=== PATIENT | male | born 1975 | race Caucasian/White ===

== ENCOUNTER → 2019-11-13 | Outpatient (CLI) | payer BC | END | disposition home or self-care (01) | LOC: LABWHC1 12:04 | PROVIDERS: ATTEND Family Medicine | DX: R05 Cough (principal); R06.02 Shortness of breath; J45.909 Unspecified asthma, uncomplicated | CPT/HCPCS: 87635 ==

== ENCOUNTER 2020-02-12 10:23 | Emergency (ER) | payer BC ==
[2020-02-12 10:35] VITALS: BP 151/83; PULSE 87; RESP 18; TEMP 98.8
[2020-02-12] MEDS ORDERED: LIDOCAINE 1%-EPI 1:100,000 20 ML VIAL SQ STA (10:48)
[2020-02-12] MEDS ORDERED: SULFAMETHOX-TMP 800-160MG 1 EACH TAB PO STA (10:49)
--- NOTE | 2020-02-12 11:10 | ED ---
Skin/Abscess/FB HPI - General Source: patient Mode of arrival: ambulatory Limitations: no limitations <Constantin Beyer - Last Filed: 02/12/20 11:34> <Margarette El - Last Filed: 02/15/20 02:22> - General Chief complaint: Skin/Abscess/Foreign Body Stated complaint: infection Time Seen by Provider: 02/12/20 10:36 - History of Present Illness Initial comments: Patient is a 44-year-old male presenting to emergency department with a chief complaint of skin infection. Patient states he's developed and "bump" on his buttock yesterday and has since increased in size. Patient states now it is very painful and difficult to sit due to the pain. Patient reports there is been no active drainage that he is aware of. Patient also reports that he garo an outline of the infection yesterday and the erythema has since spread past that. Denies any night sweats fevers or chills. States he placed lidocaine the region to help with some of discomfort but there was no significant improvement in symptoms. Tetanus up-to-date. No history of MRSA infections. (Constantin Beyer) - Related Data Home Medications Medication Instructions Recorded Confirmed Albuterol Inhaler (Mhu) [Ventolin 1 - 2 puff INHALATION RT-DAILY PRN 06/06/15 04/22/16 Inhaler] Fluticasone/Salmeterol [Advair 1 puff INHALATION RT-BID 06/06/15 04/22/16 500-50 Diskus] HYDROcodone/APAP 7.5-325MG [[place] 1 tab PO QID PRN 06/06/15 04/22/16 7.5-325] Sertraline [Zoloft] 150 mg PO HS 09/24/15 04/17/16 Buprenorphine [Butrans 20 MCG/HOUR] 1 patch TRANSDERM KIM 04/17/16 04/22/16 Ibuprofen [Motrin] 800 mg PO DAILY PRN 04/17/16 04/17/16 traZODone HCL 50 mg PO HS 04/17/16 04/17/16 Previous Rx's Medication Instructions Recorded HYDROcodone/APAP 10-325MG [[place] 1 - 2 tab PO Q4-6H PRN #60 tab 04/26/16 10-325] Sennosides-Docusate Sodium 2 tab PO DAILY #30 tablet 04/26/16 [Senokot-S] clonazePAM [KlonoPIN] 0.5 mg PO BID PRN #40 tablet 04/26/16 diazePAM [Valium] 5 mg PO QID PRN #40 tab 04/26/16 Sulfamethox-Tmp 800-160Mg [Bactrim 1 each PO Q12HR #20 tab 02/12/20 Ds] Allergies Allergy/AdvReac Type Severity Reaction Status Date / Time shellfish derived [Shellfish] Allergy Swelling Verified 02/12/20 10:34 venom-honey bee Allergy Anaphylaxis Verified 02/12/20 10:34 [bee venom (honey bee)] Iodine and Iodide Containing AdvReac Swelling Verified 02/12/20 10:34 Produc Review of Systems ROS Other: All systems not noted in ROS Statement are negative. <Constantin Beyer - Last Filed: 02/12/20 11:34> ROS Other: All systems not noted in ROS Statement are negative. <Margarette El - Last Filed: 02/15/20 02:22> ROS Statement: Those systems with pertinent positive or pertinent negative responses have been documented in the HPI. Past Medical History Past Medical History: Asthma, Pneumonia Additional Past Medical History / Comment(s): lower back pain History of Any Multi-Drug Resistant Organisms: None Reported Past Surgical History: Tonsillectomy Additional Past Surgical History / Comment(s): back decompression and fusion. Past Anesthesia/Blood Transfusion Reactions: No Reported Reaction Past Psychological History: Bipolar Smoking Status: Never smoker Past Alcohol Use History: Occasional Past Drug Use History: Marijuana - Past Family History Mother Family Medical History: No Reported History <Constantin Beyer - Last Filed: 02/12/20 11:34> General Exam Limitations: no limitations General appearance: alert, in no apparent distress, obese Head exam: Present: atraumatic, normocephalic, normal inspection Eye exam: Present: normal appearance, PERRL, EOMI Pupils: Present: normal accommodation ENT exam: Present: normal exam, normal oropharynx, mucous membranes moist Neck exam: Present: normal inspection, full ROM. Absent: tenderness Respiratory exam: Present: normal lung sounds bilaterally. Absent: respiratory distress Cardiovascular Exam: Present: regular rate, normal rhythm, normal heart sounds GI/Abdominal exam: Present: soft. Absent: distended, tenderness, guarding exam: Present: other (Abscess measuring approximately 5 cm diameter on the left buttock. Small region of fluctuance with surrounding induration. Surrounding overlying cellulitic changes.) Extremities exam: Present: normal inspection, full ROM. Absent: tenderness Back exam: Present: normal inspection, full ROM. Absent: tenderness Neurological exam: Present: alert, oriented X3 Psychiatric exam: Present: normal affect, normal mood Skin exam: Present: warm, dry, intact, normal color <Constantin Beyer - Last Filed: 02/12/20 11:34> Course Vital Signs 02/12/20 10:31 Temperature 98.8 F Pulse Rate 87 Respiratory 18 Rate Blood Pressure 151/83 O2 Sat by Pulse 97 Oximetry Procedures - Incision & Drainage Consent Obtained: verbal consent Indication: Abscess Site: buttock Size (cm): 5 Anesthetic Used: lidocaine 1%, with epi Amount (mLs): 2 I&D Cleaning Method: Alcohol Wipe Sterile Field Used?: No Scalpel Used: #11 Needle Aspiration Performed?: No Irrigation Performed?: No I&D Drainage Obtained: Pus, Blood Culture Obtained?: No Complications: pain, bleeding Patient Tolerated Procedure: well, no complications <Constantin Beyer - Last Filed: 02/12/20 11:34> Medical Decision Making <Constantin Beyer - Last Filed: 02/12/20 11:34> <Margraette El - Last Filed: 02/15/20 02:22> - Medical Decision Making Patient is a 44-year-old male presenting to the emergency department with a chief complaint of a skin infection. Patient has an abscess on the buttock measuring approximately 5 cm in diameter with a small region of fluctuance with surrounding cellulitic changes. Incision and drainage was performed. I was able to drain small amounts of pus and blood. Patient started on antibiotics and will be discharged with 10 day course of Bactrim. His tetanus is up-to-date. He is not diabetic, immunosuppressed, no history of MRSA. He was advised to take warm baths and change the gauze daily. Return parameters were thoroughly discussed the patient was standing agreeable. Case discussed with physician. (Constantin Beyer) I was available for consultation in the emergency department. The history and physical exam were done by the midlevel provider. I was not consulted for this patients care. Chart was dictated using [employer] dictation software. Attempts were made to correct any dictation errors however some typographical errors may persist. Patient was seen during a national state of emergency due to the Covid-19 pandemic. (Margarette El) Disposition Is patient prescribed a controlled substance at d/c from ED?: No Time of Disposition: 11:39 <Constantin Beyer - Last Filed: 02/12/20 11:34> <Margarette El - Last Filed: 02/15/20 02:22> Clinical Impression: Abscess of buttock Disposition: HOME SELF-CARE Condition: Stable Instructions (If sedation given, give patient instructions): Abscess (ED), Abscess Incision and Drainage (DC) Additional Instructions: Take medication as directed. Take warm baths. Return to emergency department if symptoms worsen. Prescriptions: Sulfamethox-Tmp 800-160Mg [Bactrim Ds] 1 each PO Q12HR #20 tab Referrals: Jordan Olivares DO [Primary Care Provider] - 1-2 days
== END 2020-02-12 11:55 | disposition home or self-care (01) ==
LOC: EC 10:23
DX: L02.31 Cutaneous abscess of buttock (principal); J45.909 Unspecified asthma, uncomplicated; F31.9 Bipolar disorder, unspecified; Z79.51 Long term (current) use of inhaled steroids; Z79.899 Other long term (current) drug therapy; Z91.013 Allergy to seafood; Z91.041 Radiographic dye allergy status; Z91.030 Bee allergy status
CPT/HCPCS: 10060; 99283

== ENCOUNTER → 2020-02-26 | Outpatient (CLI) | payer BC | END | disposition home or self-care (01) | LOC: LABWHC1 13:55 | PROVIDERS: ATTEND Internal Medicine | DX: Z53.9 Procedure and treatment not carried out, unspecified reason (principal) ==

== ENCOUNTER 2021-05-23 06:24 | Day surgery (SDC) | payer BC ==
[2021-05-21 14:28] VITALS: BMI 33.7
--- NOTE | 2021-05-23 05:41 | P.GSHP ---
History of Present Illness H&P Date: 05/23/21 CHIEF COMPLAINT: Tumor left forearm, 6 cm HISTORY OF PRESENT ILLNESS: The patient is a 46 year-old male with left forearm mass with tenderness over 5+ years. He now who presents for excision. PAST MEDICAL HISTORY: Please see list. PAST SURGICAL HISTORY: Please see list. MEDICATIONS: Please see list. ALLERGIES: Please see list. SOCIAL HISTORY: No illicit drug use FAMILY HISTORY: No reports of Crohn disease or ulcerative colitis. REVIEW OF ORGAN SYSTEMS: CONSTITUTIONAL: No reports of fevers or chills. GI: Denies any blood in stools or constipation. PHYSICAL EXAM: VITAL SIGNS: Stable Musculoskeletal: No clubbing cyanosis GENERAL: Well developed and in no acute distress. Pleasant. HEENT: No sclera icterus. Extraocular movements grossly intact. Moist buccal mucosa. Head is atraumatic, normocephalic. Hears conversational speech. No nasal drainage. NECK: Supple without lymphadenopathy. No JV distention. CHEST: Non-labored respirations and equal bilateral excursions. CARDIOVASCULAR: Regular rate and rhythm. Palpable 2+ radial pulses. ABDOMEN: Soft. Non-tender. Nondistended. NEUROLOGIC: No focal or lateralizing signs. PSYCH: Appropriate affect. Alert and oriented to person, place and time. SKIN: Left forearm tumor, 6 cm ASSESSMENT: 1. Left forearm tumor, 6 cm PLAN: 1. Will proceed of excision of left forearm tumor. Benefits and risks described. Past Medical History Past Medical History: Asthma, Osteoarthritis (OA), Pneumonia Additional Past Medical History / Comment(s): Lower back pain. History of Any Multi-Drug Resistant Organisms: None Reported Past Surgical History: Back Surgery, Tonsillectomy Additional Past Surgical History / Comment(s): Back decompression and fusion. Past Anesthesia/Blood Transfusion Reactions: No Reported Reaction Past Psychological History: ADD/ADHD, Anxiety, Depression Smoking Status: Never smoker Past Alcohol Use History: Occasional Past Drug Use History: Marijuana Additional Drug Use History / Comment(s): Marijuana use 2 times a month. Aware no use 24 hrs prior to procedure. - Past Family History Mother Family Medical History: No Reported History Medications and Allergies Home Medications Medication Instructions Recorded Confirmed Type Albuterol Inhaler (Mhu) [Ventolin 1 - 2 puff INHALATION DAILY PRN 06/06/15 05/21/21 History Inhaler] Fluticasone/Salmeterol [Advair 1 puff INHALATION BID 06/06/15 05/21/21 History 500-50 Diskus] Sertraline [Zoloft] 150 mg PO HS 09/24/15 05/21/21 History traZODone HCL 50 mg PO HS 04/17/16 05/21/21 History Atomoxetine HCl [Strattera] 80 mg PO QAM 05/21/21 05/21/21 History Montelukast Sodium [Singulair] 10 mg PO HS 05/21/21 05/21/21 History Tiotropium 18 Mcg/Puff [Spiriva] 1 puff INHALATION DAILY 05/21/21 05/21/21 History Allergies Allergy/AdvReac Type Severity Reaction Status Date / Time shellfish derived [Shellfish] Allergy Swelling Verified 05/21/21 14:16 venom-honey bee Allergy Anaphylaxis Verified 05/21/21 14:16 [bee venom (honey bee)] Iodine and Iodide Containing AdvReac Swelling Verified 05/21/21 14:16 Produc
[~2021-05-23 06:24] MED LIST: HEPARIN SODIUM,PORCINE/PF 5,000 UNIT/0.5 ML SYRINGE SQ PRN; Pre Op ABX Message 1 EACH MISC MISCELLANE ONE
[2021-05-23] MEDS ORDERED: MIDAZOLAM 2 MG/2 ML VIAL IV PRN (06:31)
[2021-05-23] MEDS ORDERED: ONDANSETRON 4 MG/2 ML VIAL IVP ONE (06:31)
[2021-05-23] MEDS ORDERED: LACTATED RINGERS 1,000 ML IV SCH (06:31)
[2021-05-23] MEDS ORDERED: DEXAMETHASONE SOD PHOSPHATE 4 MG/ML 1 ML VIAL IV ONE (06:31)
[2021-05-23] MEDS ORDERED: SCOPOLAMINE 1.5MG/72HR PATCH TRANSDERM ONE (06:31)
[2021-05-23] MEDS ORDERED: HYDROmorphone 0.5 MG/0.5 ML SYRINGE IVP PRN (07:00)
[2021-05-23] MEDS ORDERED: LACTATED RINGERS 1,000 ML IV ONE ×2 (07:10)
[2021-05-23] MEDS ORDERED: KETAMINE 10 MG/ML 20 ML VIAL ONE (07:47)
[2021-05-23] MEDS ORDERED: MIDAZOLAM 2 MG/2 ML VIAL ONE (07:47)
[2021-05-23] MEDS ORDERED: PROPOFOL 10 MG/ML 20 ML VIAL IV ONE (07:47)
[2021-05-23] MEDS ORDERED: fentaNYL (PF) 50 MCG/ML 2 ML AMP ONE (07:47)
[2021-05-23] MEDS ORDERED: BUPIVACAIN-EPI 0.25%-1:200,000 30 ML VIAL SQ ONE (08:11)
[2021-05-23 08:59] VITALS: TEMP 96.9
--- NOTE | 2021-05-23 09:18 | P.OP ---
Date of Procedure: 05/23/21 Description of Procedure: SURGEON: YAMILETH AGUILAR MD DIAPHRAGM BUILDER: NONE. PREOPERATIVE DIAGNOSES: 1. Left medial elbow tumor, subcutaneous 2. ADHD with ADD 3. Generalized anxiety disorder 4. Depressive disorder 5. Asthma POSTOPERATIVE DIAGNOSES: 1. Left medial elbow tumor, subcutaneous 2. ADHD with ADD 3. Generalized anxiety disorder 4. Depressive disorder 5. Asthma OPERATION: 1. Excision of left medial elbow subcutaneous tumor, 3 cm. 2. Intermediate closure of left medial elbow, 4 cm. ANESTHESIA: MAC converted to LMA with local ESTIMATED BLOOD LOSS: 5 mL. SPECIMENS REMOVED: 1. Left medial elbow tumor COMPLICATIONS: None. FINDINGS: 1. Left elbow medial mass excision, 2 cm tumor INDICATIONS: The patient is a 46-year-old male who presents with left medial elbow subcutaneous tumor. Surgical options, including excision was discussed. Benefits and risks were described. Informed consent was obtained. DESCRIPTION OF PROCEDURE: Patient was brought into the operating room, laid in left lateral decubitus position. After adequate IV sedation, the left forearm was prepped and draped in standard sterile fashion using ChloraPrep. A timeout protocol was confirmed with the surgical team regarding patient's name including procedures to be performed. Preoperative medications was administered. Next, a local field block was administered. The patient could not tolerate sedation and was converted to LMA. The left medial elbow mass was measured using a ruler with borders marked with indelible marker. A transverse of 4 cm incision was made into the dermis followed by circumferential dissection using electro-Bovie cautery into the subcutaneous tissue of the left lateral forearm. Hemostasis was checked with electrocautery. The wound was closed in multiple layers including 3-0 Vicryl for the deep subcutaneous tissue. The skin was closed using 4-0 Monocryl. The skin was cleansed. Exofin tape was placed. Optifoam dressing was placed. At the end of the procedure, needle, sponge, and instrument count had been verified correct by the certified surgical assistant. The patient was taken to the postanesthesia care unit in stable condition. Plan - Discharge Summary Discharge Rx Participant: No New Discharge Prescriptions: New Ibuprofen [Motrin] 600 mg PO Q8HR PRN #30 tab PRN Reason: Pain Continue Albuterol Inhaler (Mhu) [Ventolin Hfa Inhaler (Mhu)] 1 - 2 puff INHALATION DAILY PRN PRN Reason: Shortness Of Breath Fluticasone/Salmeterol [Advair 500-50 Diskus] 1 puff INHALATION BID Sertraline [Zoloft] 150 mg PO HS traZODone HCL 50 mg PO HS Atomoxetine HCl [Strattera] 80 mg PO QAM Tiotropium 18 Mcg/Puff [Spiriva] 1 puff INHALATION DAILY Montelukast Sodium [Singulair] 10 mg PO HS Discharge Medication List Albuterol Inhaler (Mhu) [Ventolin Hfa Inhaler (Mhu)] 1 - 2 puff INHALATION DAILY PRN 06/06/15 [History] Fluticasone/Salmeterol [Advair 500-50 Diskus] 1 puff INHALATION BID 06/06/15 [History] Sertraline [Zoloft] 150 mg PO HS 09/24/15 [History] traZODone HCL 50 mg PO HS 04/17/16 [History] Atomoxetine HCl [Strattera] 80 mg PO QAM 05/21/21 [History] Montelukast Sodium [Singulair] 10 mg PO HS 05/21/21 [History] Tiotropium 18 Mcg/Puff [Spiriva] 1 puff INHALATION DAILY 05/21/21 [History] Ibuprofen [Motrin] 600 mg PO Q8HR PRN #30 tab 05/23/21 [Rx] Follow up Appointment(s)/Referral(s): Yamileth Aguilar MD [STAFF PHYSICIAN] - 05/27/21 Patient Instructions/Handouts: Excision of Skin Lesion (DC) Activity/Diet/Wound Care/Special Instructions: DO NOT REMOVE DRESSING. SEE INSTRUCTIONS ON DRESSING May shower. No bath tub soaks for two weeks until Jun 06 for your arm. Diet as tolerated. Use Tylenol and ibuprofen or Aleve scheduled for the next 24-48 hours for best pain relief. Use ice along incisions for today to prevent swelling. Discharge Disposition: HOME SELF-CARE
[2021-05-23 09:49] VITALS: BP 134/81; PULSE 66; RESP 20
== END 2021-05-23 10:11 | disposition home or self-care (01) ==
LOC: OR 06:24
PROVIDERS: ATTEND Surgery Plastic and Reconstructive Surgery
DX: D49.2 Neoplasm of unspecified behavior of bone, soft tissue, and skin (principal); F41.1 Generalized anxiety disorder; J45.909 Unspecified asthma, uncomplicated; F32.A Depression, unspecified; F90.9 Attention-deficit hyperactivity disorder, unspecified type
CPT/HCPCS: 88304; 11403; J2250; J1100; J2405; J3010; J2704; J1644

== ENCOUNTER → 2021-12-26 | Outpatient (CLI) | payer BC ==
[2021-12-26 22:31] LABS: Basophils # (A) 0.05 X 10*3/uL (0.00-0.10); Basophils % (A) 0.7 %; Eosinophils # (A) 0.49 X 10*3/uL (0.04-0.35); Eosinophils % (A) 6.7 %; HCT 43.4 % (39.6-50.0); HGB 14.3 g/dL (13.0-17.0); Immature Grans, Automated 0.6 %; Lymphocytes # (A) 1.39 X 10*3/uL (0.90-5.00); Lymphocytes % (A) 19.1 %; MCH 28.4 pg (27.0-32.0); MCHC 32.9 g/dL (32.0-37.0); MCV 86.1 fL (80.0-97.0); Mean Platelet Volume 8.9 fL (9.5-12.2); Monocytes # (A) 0.51 X 10*3/uL (0.20-1.00); NRBC Per 100 WBC 0 /100 WBCS (0.0-0.0); Neutrophils # (A) 4.79 X 10*3/uL (1.80-7.70); Neutrophils % (A) 65.9 %; Platelet Count 212 X 10*3/uL (140-440); RBC 5.04 X 10*6/uL (4.40-5.60); RDW 11.9 % (11.5-14.5); WBC 7.27 X 10*3/uL (4.50-10.00)
== END | disposition home or self-care (01) ==
LOC: LABWHC1 15:50
PROVIDERS: ATTEND Internal Medicine
DX: J45.998 Other asthma (principal)
CPT/HCPCS: 36415; 82785; 85025

== ENCOUNTER → 2022-11-12 | Outpatient (CLI) | payer BC ==
[2022-11-12 18:04] LABS: Alternaria alternata IgE 1.08 kU/L; Aspergillus fumagatus IgE 0.31 kU/L; Birch IgE 0.17 kU/L; Cladosporian herbarum IgE 0.42 kU/L; Cockroach IgE 1.62 kU/L; Elm IgE <0.10 kU/L; Maple (Box Elder) IgE 0.25 kU/L; Oak IgE <0.10 kU/L; Ragweed,Common IgE 0.18 kU/L; Red Top (Bentgrass) IgE 1.34 kU/L
[2022-11-12 18:06] LABS: Cat Epith & Dander IgE 1.58 kU/L; Dermato. farinae IgE 4.38 kU/L; Dog Dander IgE <0.10 kU/L
== END | disposition home or self-care (01) ==
LOC: LABWHC1 10:02
PROVIDERS: ATTEND Internal Medicine
DX: M13.80 Other specified arthritis, unspecified site (principal)
CPT/HCPCS: 36415; 82785; 86003

== ENCOUNTER 2023-09-27 11:43 | Emergency (ER) | payer BC ==
--- NOTE | 2023-09-27 11:58 | ED ---
Syncope HPI - General Stated Complaint: head injury/fall Time Seen by Provider: 09/27/23 11:57 Source: patient, RN notes reviewed Mode of arrival: ambulatory Limitations: no limitations - History of Present Illness Initial Comments: Patient is a 48-year-old male presenting to the ER with a chief complaint of syncope. Patient states on Wednesday night he got up to use the restroom and believes he passed out. He reports he woke up on the ground on his left side. He states he fell onto a glass closet door and the glass was shattered when he woke up. He is unsure if there is any dizziness, chest pain, shortness of breath or lightheadedness prior to event. He is not on any blood thinners. He also is reporting a "rattling in his chest". He states this is a chronic issue and has close follow-up with PCP. Denies any fevers, chills, shortness of breath, chest pain, abdominal pain, constipation/diarrhea or urinary complaints. - Related Data Home Medications Medication Instructions Recorded Confirmed Albuterol Inhaler [Ventolin Hfa 1 - 2 puff INHALATION DAILY PRN 06/06/15 05/21/21 Inhaler] Fluticasone Propion/Salmeterol 1 puff INHALATION BID 06/06/15 05/21/21 [Advair 500-50 Diskus] Sertraline [Zoloft] 150 mg PO HS 09/24/15 05/21/21 traZODone HCL 50 mg PO HS 04/17/16 05/21/21 Atomoxetine HCl [Strattera] 80 mg PO QAM 05/21/21 05/21/21 Montelukast Sodium [Singulair] 10 mg PO HS 05/21/21 05/21/21 Tiotropium 18 Mcg/Puff [Spiriva] 1 puff INHALATION DAILY 05/21/21 05/21/21 Previous Rx's Medication Instructions Recorded Ibuprofen [Motrin] 600 mg PO Q8HR PRN #30 tab 05/23/21 Allergies Allergy/AdvReac Type Severity Reaction Status Date / Time shellfish derived [Shellfish] Allergy Swelling Verified 09/27/23 11:56 venom-honey bee Allergy Anaphylaxis Verified 09/27/23 11:56 [bee venom (honey bee)] Iodine and Iodide Containing AdvReac Swelling Verified 09/27/23 11:56 Produc Review of Systems ROS Statement: Those systems with pertinent positive or pertinent negative responses have been documented in the HPI. ROS Other: All systems not noted in ROS Statement are negative. Past Medical History Past Medical History: Asthma, Osteoarthritis (OA), Pneumonia Additional Past Medical History / Comment(s): Lower back pain. History of Any Multi-Drug Resistant Organisms: None Reported Past Surgical History: Back Surgery, Tonsillectomy Additional Past Surgical History / Comment(s): Back decompression and fusion. Past Anesthesia/Blood Transfusion Reactions: No Reported Reaction Past Psychological History: ADD/ADHD, Anxiety, Depression Smoking Status: Never smoker Past Alcohol Use History: Occasional Past Drug Use History: Marijuana - Past Family History Mother Family Medical History: No Reported History General Exam - General Exam Comments Initial Comments: Visual Physical Exam Vital signs reviewed General: Well-appearing, nontoxic, no acute distress. Head: Normocephalic, atraumatic Eyes: PERRLA, EOMI, contusion under left eye ENT: Airway patent Chest: Nonlabored breathing Skin: No visual rash, normal skin tone Neuro: Alert and oriented 3 Musculoskeletal: No gross abnormalities Limitations: no limitations General appearance: alert, in no apparent distress Head exam: Present: atraumatic, normocephalic, normal inspection Eye exam: Present: normal appearance, PERRL, EOMI, other (Contusion under left eye. Abrasion to nasal bridge). Absent: scleral icterus, conjunctival injection, periorbital swelling ENT exam: Present: normal exam, normal oropharynx, mucous membranes moist, TM's normal bilaterally Neck exam: Present: normal inspection. Absent: tenderness, meningismus, lymphadenopathy Respiratory exam: Present: normal lung sounds bilaterally. Absent: respiratory distress, wheezes, rales, rhonchi, stridor Cardiovascular Exam: Present: regular rate, normal rhythm, normal heart sounds. Absent: systolic murmur, diastolic murmur, rubs, gallop, clicks GI/Abdominal exam: Present: soft, normal bowel sounds. Absent: distended, tenderness, guarding, rebound, rigid Extremities exam: Present: normal inspection, full ROM, normal capillary refill. Absent: tenderness, pedal edema, joint swelling, calf tenderness Neurological exam: Present: alert, oriented X3, CN II-XII intact Psychiatric exam: Present: normal affect, normal mood Skin exam: Present: warm, dry, intact, normal color. Absent: rash Course Vital Signs 09/27/23 11:53 Temperature 98 F Pulse Rate 92 Respiratory 18 Rate Blood Pressure 152/88 O2 Sat by Pulse 98 Oximetry Medical Decision Making - Medical Decision Making I performed the quick note portion of this chart. Electronically signed by Margarito Mejia PA-C Was pt. sent in by a medical professional or institution (, [facility], EVALUATION ANALYST, urgent care, hospital, or skilled nursing...) When possible be specific @ -No Did you speak to anyone other than the patient for history (EMS, parent, family, police, friend...)? What history was obtained from this source @ -No Did you review nursing and triage notes (agree or disagree)? Why? @ -I reviewed and agree with nursing and triage notes Were old charts reviewed (outside hosp., previous admission, EMS record, old EKG, old radiological studies, urgent care reports/EKG's, skilled nursing records)? Report findings @ -No old charts were reviewed Differential Diagnosis (chest pain, altered mental status, abdominal pain women, abdominal pain men, vaginal bleeding, weakness, fever, dyspnea, syncope, headache, dizziness, GI bleed, back pain, seizure, CVA, palpatations, mental health, musculoskeletal)? @ -Differential Syncope:Valvular disease, hypertrophic cardiomyopathy, pulmonary embolism, tamponade, tachycardia, bradycardia, CT, hypovolemia, hemorrhage, dissection, anemia, intracranial hemorrhage, seizure, hypoglycemia, carbon monoxide poisoning, this is not meant to be an all-inclusive list. EKG interpreted by me (3pts min.). @ -As above X-rays interpreted by me (1pt min.). @ -Chest x-ray interpreted by me negative for acute cardiopulmonary process. CT interpreted by me (1pt min.). @ -CT brain negative for acute process. U/S interpreted by me (1pt. min.). @ -None done What testing was considered but not performed or refused? (CT, X-rays, U/S, labs)? Why? @ -None What meds were considered but not given or refused? Why? @ -None Did you discuss the management of the patient with other professionals (professionals i.e. YOEL Gates, EVALUATION ANALYST, lab, RT, psych nurse, social security assessor, size mixer, teacher, zoology technical officer, lead case manager)? Give summary @ -No Was smoking cessation discussed for >3mins.? @ -No Was critical care preformed (if so, how long)? @ -No Were there social determinants of health that impacted care today? How? (Homelessness, low income, unemployed, alcoholism, drug addiction, transportation, low edu. Level, literacy, decrease access to med. care, group home, rehab)? @ -No Was there de-escalation of care discussed even if they declined (Discuss DNR or withdrawal of care, Hospice)? DNR status @ -No What co-morbidities impacted this encounter? (DM, HTN, Smoking, COPD, CAD, Cancer, CVA, ARF, Chemo, Hep., AIDS, mental health diagnosis, sleep apnea, morbid obesity)? @ -None Was patient admitted / discharged? Hospital course, mention meds given and route, prescriptions, significant lab abnormalities, going to OR and other pertinent info. @ -Discharge. Patient is a 48-year-old male presenting to the ER with chief complaint of fall and possible syncope. Patient originally examined by myself is a quick note. History and physical exam completed. Vitals stable. Patient in no signs of acute distress and nontoxic-appearing. No acute neurological findings on exam. Contusion under left eye. Imaging completed in the ER negative for acute process. Labs obtained unremarkable. Urine without signs of infection. EKG showing normal sinus rhythm with no acute ST segment or T wave abnormalities. COVID, influenza, RSV negative. Results discussed with patient, all questions answered. Advise close follow-up with PCP. Return parameters discussed. Patient discharged in stable condition with follow-up to PCP. Patient verbally expressed understanding and agreement with care plan. Case discussed with ED attending, Dr. Santos. Undiagnosed new problem with uncertain prognosis? @ -No Drug Therapy requiring intensive monitoring for toxicity (Heparin, Nitro, Insulin, Cardizem)? @ -No Were any procedures done? @ -No Diagnosis/symptom? @ -Contusion/syncope Acute, or Chronic, or Acute on Chronic? @ -Acute Uncomplicated (without systemic symptoms) or Complicated (systemic symptoms)? @ -Uncomplicated Side effects of treatment? @ -No Exacerbation, Progression, or Severe Exacerbation? @ -No Poses a threat to life or bodily function? How? (Chest pain, USA, [place], pneumonia, PE, COPD, DKA, ARF, appy, cholecystitis, CVA, Diverticulitis, Homicidal, Suicidal, threat to staff... and all critical care pts) @ -No - Lab Data Result diagrams: 09/27/23 12:09/27/23 12: Lab Results 09/27/23 09/27/23 09/27/23 Range/Units 12:01 12:01 12:01 WBC 7.2 (3.8-10.6) k/uL RBC 5.27 (4.30-5.90) m/uL Hgb 15.2 (13.0-17.5) gm/dL Hct 44.9 (39.0-53.0) % MCV 85.2 (80.0-100.0) fL MCH 28.9 (25.0-35.0) pg MCHC 33.9 (31.0-37.0) g/dL RDW 12.4 (11.5-15.5) % Plt Count 213 (150-450) k/uL MPV 6.8 Neutrophils % 60 % Lymphocytes % 25 % Monocytes % 6 % Eosinophils % 7 % Basophils % 1 % Neutrophils # 4.4 (1.3-7.7) k/uL Lymphocytes # 1.8 (1.0-4.8) k/uL Monocytes # 0.5 (0-1.0) k/uL Eosinophils # 0.5 (0-0.7) k/uL Basophils # 0.1 (0-0.2) k/uL PT 10.9 (10.0-12.5) sec INR 1.0 (<1.2) APTT 24.2 (22.0-30.0) sec Sodium 140 (137-145) mmol/L Potassium 4.0 (3.5-5.1) mmol/L Chloride 106 (98-107) mmol/L Carbon Dioxide 25 (22-30) mmol/L Anion Gap 9 mmol/L BUN 20 (9-20) mg/dL Creatinine 1.00 (0.66-1.25) mg/dL Est GFR (CKD-EPI)AfAm >90 (>60 ml/min/1.73 sqM) Est GFR (CKD-EPI)NonAf 90 (>60 ml/min/1.73 sqM) Glucose 92 (74-99) mg/dL Calcium 9.8 (8.4-10.2) mg/dL Magnesium 2.0 (1.6-2.3) mg/dL Total Bilirubin 0.7 (0.2-1.3) mg/dL AST 87 H (17-59) U/L ALT 62 H (4-49) U/L Alkaline Phosphatase 87 (38-126) U/L Troponin I (0.000-0.034) ng/mL Total Protein 7.4 (6.3-8.2) g/dL Albumin 4.8 (3.5-5.0) g/dL Urine Color Urine Appearance (Clear) Urine pH (5.0-8.0) Ur Specific [place] (1.001-1.035) Urine Protein (Negative) Urine Glucose (UA) (Negative) Urine Ketones (Negative) Urine Blood (Negative) Urine Nitrite (Negative) Urine Bilirubin (Negative) Urine Urobilinogen (<2.0) mg/dL Ur Leukocyte Esterase (Negative) Influenza Type A (PCR) (Not Detectd) Influenza Type B (PCR) (Not Detectd) RSV (PCR) (Not Detectd) SARS-CoV-2 (PCR) (Not Detectd) 09/27/23 09/27/23 09/27/23 Range/Units 12:01 12:01 13:16 WBC (3.8-10.6) k/uL RBC (4.30-5.90) m/uL Hgb (13.0-17.5) gm/dL Hct (39.0-53.0) % MCV (80.0-100.0) fL MCH (25.0-35.0) pg MCHC (31.0-37.0) g/dL RDW (11.5-15.5) % Plt Count (150-450) k/uL MPV Neutrophils % % Lymphocytes % % Monocytes % % Eosinophils % % Basophils % % Neutrophils # (1.3-7.7) k/uL Lymphocytes # (1.0-4.8) k/uL Monocytes # (0-1.0) k/uL Eosinophils # (0-0.7) k/uL Basophils # (0-0.2) k/uL PT (10.0-12.5) sec INR (<1.2) APTT (22.0-30.0) sec Sodium (137-145) mmol/L Potassium (3.5-5.1) mmol/L Chloride (98-107) mmol/L Carbon Dioxide (22-30) mmol/L Anion Gap mmol/L BUN (9-20) mg/dL Creatinine (0.66-1.25) mg/dL Est GFR (CKD-EPI)AfAm (>60 ml/min/1.73 sqM) Est GFR (CKD-EPI)NonAf (>60 ml/min/1.73 sqM) Glucose (74-99) mg/dL Calcium (8.4-10.2) mg/dL Magnesium (1.6-2.3) mg/dL Total Bilirubin (0.2-1.3) mg/dL AST (17-59) U/L ALT (4-49) U/L Alkaline Phosphatase (38-126) U/L Troponin I <0.012 (0.000-0.034) ng/mL Total Protein (6.3-8.2) g/dL Albumin (3.5-5.0) g/dL Urine Color Light Yellow Urine Appearance Clear (Clear) Urine pH 6.0 (5.0-8.0) Ur Specific [place] 1.023 (1.001-1.035) Urine Protein Negative (Negative) Urine Glucose (UA) Negative (Negative) Urine Ketones Negative (Negative) Urine Blood Negative (Negative) Urine Nitrite Negative (Negative) Urine Bilirubin Negative (Negative) Urine Urobilinogen <2.0 (<2.0) mg/dL Ur Leukocyte Esterase Negative (Negative) Influenza Type A (PCR) Not Detected (Not Detectd) Influenza Type B (PCR) Not Detected (Not Detectd) RSV (PCR) Not Detected (Not Detectd) SARS-CoV-2 (PCR) Not Detected (Not Detectd) - EKG Data -: EKG Interpreted by Me EKG Comments: EKG taken at 12: 09 shows normal sinus rhythm with no acute ST segment or T wave abnormalities. Ventricular rate 70, ND interval 158, QRS duration 94, QT/QTc 380/400. - Radiology Data Radiology results: report reviewed, image reviewed Disposition Clinical Impression: Contusion, Syncope Disposition: HOME SELF-CARE Condition: Stable Instructions (If sedation given, give patient instructions): Syncope (DC) Additional Instructions: Please follow-up with PCP in the next 1 to 2 days. Return to the ER for new or worsening concerns. Is patient prescribed a controlled substance at d/c from ED?: No Referrals: Jordan Olivares DO [Primary Care Provider] - 1-2 days Time of Disposition: 14:45
[2023-09-27 12:11] VITALS: BP 152/88; PULSE 92; RESP 18; TEMP 98
[2023-09-27 12:41] LABS: Basophils # (A) 0.1 k/uL (0-0.2); Basophils % (A) 1 %; Eosinophils # (A) 0.5 k/uL (0-0.7); Eosinophils % (A) 7 %; HCT 44.9 % (39.0-53.0); HGB 15.2 gm/dL (13.0-17.5); Lymphocytes # (A) 1.8 k/uL (1.0-4.8); Lymphocytes % (A) 25 %; MCH 28.9 pg (25.0-35.0); MCHC 33.9 g/dL (31.0-37.0); MCV 85.2 fL (80.0-100.0); Mean Platelet Volume 6.8; Monocytes # (A) 0.5 k/uL (0-1.0); Monocytes % (A) 6 %; Neutrophils # (A) 4.4 k/uL (1.3-7.7); Neutrophils % (A) 60 %; Platelet Count 213 k/uL (150-450); RBC 5.27 m/uL (4.30-5.90); RDW 12.4 % (11.5-15.5); WBC 7.2 k/uL (3.8-10.6)
[2023-09-27 12:51] LABS: Partial Thromboplastin Time 24.2 sec (22.0-30.0); Prothrombin Time 10.9 sec (10.0-12.5)
--- NOTE | 2023-09-27 12:51 | CT ---
EXAMINATION TYPE: CT brain wo con DATE OF EXAM: 09/27/2023 COMPARISON: None HISTORY: syncope CT DLP: 1066.4 mGycm. Automated Exposure Control for Dose Reduction was Utilized. TECHNIQUE: CT scan of the head is performed without contrast. FINDINGS: There is no acute intracranial hemorrhage, mass effect, or midline shift identified. The ventricles and sulci are within normal limits in size. The globes are intact and the visualized sin uses are clear. IMPRESSION: No acute intracranial hemorrhage, mass effect, or midline shift is seen.
[2023-09-27 13:03] LABS: ALT 62 U/L (4-49); AST 87 U/L (17-59); African American GFR (CKD) >90 (>60 ml/min/1.73 sqM); Albumin 4.8 g/dL (3.5-5.0); Alkaline Phosphatase 87 U/L (38-126); Anion Gap 9 mmol/L; Blood Urea Nitrogen 20 mg/dL (9-20); Calcium 9.8 mg/dL (8.4-10.2); Carbon Dioxide 25 mmol/L (22-30); Chloride 106 mmol/L (98-107); Glucose 92 mg/dL (74-99); Non-African American GFR(CKD) 90 (>60 ml/min/1.73 sqM); Sodium 140 mmol/L (137-145); Total Bilirubin 0.7 mg/dL (0.2-1.3); Total Protein 7.4 g/dL (6.3-8.2)
[2023-09-27 13:45] LABS: Appearance,Urine Clear (Clear); Bilirubin,Urine Negative (Negative); Blood,Urine Negative (Negative); Color,Urine Light Yellow; Glucose,Urine (UA) Negative (Negative); Ketones,Urine Negative (Negative); Leukocyte Esterase,Urine Negative (Negative); Nitrite,Urine Negative (Negative); Protein,Urine Negative (Negative); Specific Gravity,Urine 1.023 (1.001-1.035); Urobilinogen,Urine <2.0 mg/dL (<2.0)
--- NOTE | 2023-09-27 14:03 | XR ---
EXAMINATION TYPE: XR chest 2V DATE OF EXAM: 09/27/2023 12:33 PM CLINICAL INDICATION:Male, 48 years old with history of syncope; [facility] COMPARISON: Chest radiographs from 07/11/2015 TECHNIQUE: XR chest 2V Frontal and lateral views of the chest. FINDINGS: Lungs/Pleura: There is no evidence of pleural effusion, focal consolidation, or pneumothorax. Pulmonary vascularity: Unremarkable. Heart/mediastinum: Cardiomediastinal silhouette is unremarkable. Musculoskeletal: No acute osseous pathology. IMPRESSION: No acute cardiopulmonary disease/process.
== END 2023-09-27 15:00 | disposition home or self-care (01) ==
LOC: EC 11:43
DX: S00.83XA Contusion of other part of head, initial encounter (principal); S00.31XA Abrasion of nose, initial encounter; R55 Syncope and collapse; Z88.8 Allergy status to other drugs, medicaments and biological substances; Z91.030 Bee allergy status; Z91.041 Radiographic dye allergy status; W18.30XA Fall on same level, unspecified, initial encounter; W25.XXXA Contact with sharp glass, initial encounter
CPT/HCPCS: 36415; 70450; 71046; 80053; 81003; 83735; 84484; 85025; 85610; 85730; 87636; 93005; 99284

== ENCOUNTER 2024-05-31 11:40 | Inpatient (IN) | payer BC ==
--- NOTE | 2024-05-31 12:10 | ED ---
General Adult HPI - General Chief complaint: Anxiety Stated complaint: Anxiety Time Seen by Provider: 05/31/24 11:48 Source: patient, RN notes reviewed, old records reviewed Mode of arrival: ambulatory Limitations: no limitations - History of Present Illness Initial comments: 49-year-old male presenting with anxiety, thoughts of self-harm. Patient states he is having a panic attack after a argument with his fiance. He did not know where to go and so he came to the emergency department. He states that he has had history with mental illness, depression and anxiety in the past. - Related Data Home Medications Medication Instructions Recorded Confirmed Sertraline [Zoloft] 150 mg PO HS 09/24/15 05/31/24 traZODone HCL 50 mg PO HS 04/17/16 05/31/24 Montelukast Sodium [Singulair] 10 mg PO HS 05/21/21 05/31/24 Fluticasone/Umeclidin/Vilanter 1 puff INHALATION RT-DAILY 05/31/24 05/31/24 [Trelegy Ellipta 200-62.5-25] Lisdexamfetamine Dimesylate 60 mg PO DAILY 05/31/24 05/31/24 [Vyvanse] Rosuvastatin [Crestor] 10 mg PO HS 05/31/24 05/31/24 amLODIPine [Norvasc] 10 mg PO DAILY 05/31/24 05/31/24 Allergies Allergy/AdvReac Type Severity Reaction Status Date / Time shellfish derived [Shellfish] Allergy Swelling Verified 05/31/24 12:08 venom-honey bee Allergy Anaphylaxis Verified 05/31/24 12:08 [bee venom (honey bee)] Iodine and Iodide Containing AdvReac Swelling Verified 05/31/24 12:08 Produc Review of Systems ROS Statement: Those systems with pertinent positive or pertinent negative responses have been documented in the HPI. ROS Other: All systems not noted in ROS Statement are negative. Past Medical History Past Medical History: Asthma, Osteoarthritis (OA), Pneumonia Additional Past Medical History / Comment(s): Lower back pain. History of Any Multi-Drug Resistant Organisms: None Reported Past Surgical History: Back Surgery, Tonsillectomy Additional Past Surgical History / Comment(s): Back decompression and fusion. Past Anesthesia/Blood Transfusion Reactions: No Reported Reaction Past Psychological History: ADD/ADHD, Anxiety, Depression Smoking Status: Never smoker Past Alcohol Use History: Occasional Past Drug Use History: Marijuana - Past Family History Mother Family Medical History: No Reported History General Exam Limitations: no limitations General appearance: alert, anxious Head exam: Present: atraumatic, normocephalic Eye exam: Present: normal appearance, PERRL ENT exam: Present: normal exam Neck exam: Present: normal inspection. Absent: meningismus Respiratory exam: Present: normal lung sounds bilaterally. Absent: respiratory distress, wheezes Cardiovascular Exam: Present: regular rate, normal rhythm GI/Abdominal exam: Present: soft. Absent: distended Extremities exam: Present: normal inspection, normal capillary refill Neurological exam: Present: alert, oriented X3 Psychiatric exam: Present: depressed, agitated, anxious, suicidal ideation Skin exam: Present: warm, dry, intact Course Vital Signs 05/31/24 11:42 Temperature 97.6 F Pulse Rate 10 L Respiratory 20 Rate Blood Pressure 167/95 O2 Sat by Pulse 99 Oximetry Medical Decision Making - Medical Decision Making Was pt. sent in by a medical professional or institution ([facility] Gates, GEAR SETTER, urgent care, hospital, or intermediate...) When possible be specific @ -No Did you speak to anyone other than the patient for history (EMS, parent, family, police, friend...)? What history was obtained from this source @ -No Did you review nursing and triage notes (agree or disagree)? Why? @ -I reviewed and agree with nursing and triage notes Were old charts reviewed (outside hosp., previous admission, EMS record, old EKG, old radiological studies, urgent care reports/EKG's, intermediate records)? Report findings @ -No old charts were reviewed Differential Mental Health Depression, anxiety, bipolar, psychosis, schizophrenia, borderline personality, situational depression, adjustment disorder, behavioral disorder, brain tumor, malingering, substance abuse, encephalopathy, medication reaction, dementia, hypothyroidism, degenerative neurologic disorder, lupus.... This is not meant to be all-inclusive list EKG interpreted by me (3pts min.). @ -As above X-rays interpreted by me (1pt min.). @ -None done CT interpreted by me (1pt min.). @ -None done U/S interpreted by me (1pt. min.). @ -None done What testing was considered but not performed or refused? (CT, X-rays, U/S, labs)? Why? @ -None What meds were considered but not given or refused? Why? @ -None Did you discuss the management of the patient with other professionals (professionals i.e. , PA, GEAR SETTER, lab, RT, psych nurse, social media analyst, county ordinary, teacher, commanding officer homicide squad, case picker)? Give summary @Patient seen by EPS and felt to require inpatient psychiatric care Was smoking cessation discussed for >3mins.? @ -No Was critical care preformed (if so, how long)? @ -No Were there social determinants of health that impacted care today? How? (Homelessness, low income, unemployed, alcoholism, drug addiction, transporta tion, low edu. Level, literacy, decrease access to med. care, [facility], rehab)? @ -No Was there de-escalation of care discussed even if they declined (Discuss DNR or withdrawal of care, Hospice)? DNR status @ -No What co-morbidities impacted this encounter? (DM, HTN, Smoking, COPD, CAD, Cancer, CVA, ARF, Chemo, Hep., AIDS, mental health diagnosis, sleep apnea, morbid obesity)? @ -None Was patient admitted / discharged? Hospital course, mention meds given and route, prescriptions, significant lab abnormalities, going to OR and other pertinent info. @ -[Patient medically cleared and evaluated by EPS and will be admitted to this institution Undiagnosed new problem with uncertain prognosis? @ -No Drug Therapy requiring intensive monitoring for toxicity (Heparin, Nitro, Insulin, Cardizem)? @ -No Were any procedures done? @ -No Diagnosis/symptom? @ -[Depression, anxiety, suicidal ideation Acute, or Chronic, or Acute on Chronic? @ -Acute Uncomplicated (without systemic symptoms) or Complicated (systemic symptoms)? @ -[default Side effects of treatment? @ -No Exacerbation, Progression, or Severe Exacerbation? @ -No Poses a threat to life or bodily function? How? (Chest pain, [place], [place], pneumonia, PE, COPD, DKA, ARF, appy, cholecystitis, CVA, Diverticulitis, Homicidal, Suicidal, threat to staff... and all critical care pts) @ -Yes, self-harm - Lab Data Lab Results 05/31/24 Range/Units 13:38 Urine Opiates Screen Not Detected (NotDetected) Ur Oxycodone Screen Not Detected (NotDetected) Urine Methadone Screen Not Detected (NotDetected) Ur Barbiturates Screen Not Detected (NotDetected) U Tricyclic Antidepress Not Detected (NotDetected) Ur Phencyclidine Scrn Not Detected (NotDetected) Ur Amphetamines Screen Not Detected (NotDetected) U Methamphetamines Scrn Not Detected (NotDetected) U Benzodiazepines Scrn Not Detected (NotDetected) Urine Cocaine Screen Not Detected (NotDetected) U Marijuana (THC) Screen Detected H (NotDetected) Disposition Clinical Impression: Acute anxiety, Depression, Suicidal ideation Disposition: ADMITTED IP TO THIS [facility] Condition: Stable Is patient prescribed a controlled substance at d/c from ED?: No Referrals: Jordan Olivares DO [Primary Care Provider] - 1-2 days Time of Disposition: 14:37
[2024-05-31 13:57] LABS: Amphetamine Screen,Urine Not Detected (NotDetected); Barbiturate Screen,Urine Not Detected (NotDetected); Benzodiazepines Screen,Urine Not Detected (NotDetected); Cocaine Screen,Urine Not Detected (NotDetected); Methadone Screen, Urine Not Detected (NotDetected); Opiate Screen,Urine Not Detected (NotDetected); Oxycodone Screen, Urine Not Detected (NotDetected); Phencyclidine Screen,Urine Not Detected (NotDetected); Tricyclic Antidepressant,Urine Not Detected (NotDetected); Urn Cannabinoid Scrn Detected (NotDetected)
[2024-05-31] MEDS ORDERED: ACETAMINOPHEN TAB 325 MG TAB PO PRN (16:00)
[2024-05-31] MEDS ORDERED: MAG HYDROX/AL HYDROX/SIMETH 355 ML BOTTLE PO PRN (16:00)
[2024-05-31] MEDS ORDERED: MAGNESIUM HYDROXIDE 2,400 MG/30 ML CUP PO PRN (16:00)
[2024-05-31] MEDS ORDERED: LORazepam 2 MG/ML INJ IM PRN (16:04)
[2024-05-31] MEDS ORDERED: haloperidoL 5 MG TAB PO PRN (16:04)
[2024-05-31] MEDS ORDERED: HALOPERIDOL LACTATE 5 MG/ML 1 ML VIAL IM PRN (16:04)
[2024-05-31] MEDS ORDERED: IPRATROPIUM 0.5 MG/2.5 ML NEBU INHALATION SCH (20:00)
[2024-05-31] MEDS: SERTRALINE 50 MG TAB PO SCH ×2 (21:00→21:50)
[2024-05-31 21:22] LABS: Appearance,Urine Clear (Clear); Bilirubin,Urine Negative (Negative); Blood,Urine Negative (Negative); Color,Urine Light Yellow; Glucose,Urine (UA) Negative (Negative); Ketones,Urine Negative (Negative); Leukocyte Esterase,Urine Negative (Negative); Nitrite,Urine Negative (Negative); PH, Urine 5.5 (5.0-8.0); Protein,Urine Negative (Negative); Specific Gravity,Urine 1.025 (1.001-1.035); Urobilinogen,Urine <2.0 mg/dL (<2.0)
[2024-05-31] MEDS: IBUPROFEN 600 MG TAB PO PRN (21:27)
[2024-05-31] MEDS: ATORVASTATIN 20 MG TAB PO SCH (21:28)
[2024-05-31] MEDS: MONTELUKAST 10 MG TAB PO SCH (21:28)
[2024-05-31] MEDS: traZODone HCL 50 MG TAB PO SCH (21:28)
[2024-06-01] MEDS: TIOTROPIUM 2.5 MCG INHALER (MHU) INHALATION SCH (09:04)
[2024-06-01] MEDS: amLODIPine 10 MG TAB PO SCH (09:06)
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
[2024-06-01] MEDS: SYMBICORT 160-4.5 MCG INHALER INHALATION SCH (09:41)
[2024-06-01] MEDS: busPIRone HCl 5 MG TAB PO SCH (09:43)
[2024-06-01] MEDS: LORazepam 1 MG TAB PO PRN (09:43)
[2024-06-01] MEDS: SERTRALINE 100 MG TAB PO SCH (09:43)
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
[2024-06-01 11:24] LABS: Basophils % (A) 1 %; Eosinophils # (A) 0.4 k/uL (0-0.7); Eosinophils % (A) 7 %; HCT 45.2 % (39.0-53.0); HGB 15.3 gm/dL (13.0-17.5); Lymphocytes # (A) 1.3 k/uL (1.0-4.8); Lymphocytes % (A) 21 %; MCH 28.6 pg (25.0-35.0); MCHC 33.8 g/dL (31.0-37.0); MCV 84.4 fL (80.0-100.0); Mean Platelet Volume 6.7; Monocytes # (A) 0.4 k/uL (0-1.0); Monocytes % (A) 6 %; Neutrophils % (A) 64 %; Platelet Count 207 k/uL (150-450); RBC 5.36 m/uL (4.30-5.90); WBC 6.2 k/uL (3.8-10.6)
[2024-06-01 11:42] LABS: ALT 55 U/L (4-49); AST 52 U/L (17-59); African American GFR (CKD) >90 (>60 ml/min/1.73 sqM); Albumin 4.8 g/dL (3.5-5.0); Alkaline Phosphatase 76 U/L (38-126); Anion Gap 6 mmol/L; Blood Urea Nitrogen 17 mg/dL (9-20); Calcium 9.7 mg/dL (8.4-10.2); Carbon Dioxide 27 mmol/L (22-30); Chloride 106 mmol/L (98-107); Glucose 98 mg/dL (74-99); Non-African American GFR(CKD) 83 (>60 ml/min/1.73 sqM); Potassium 3.9 mmol/L (3.5-5.1); Sodium 139 mmol/L (137-145); Total Bilirubin 0.9 mg/dL (0.2-1.3); Total Protein 7.3 g/dL (6.3-8.2)
[2024-06-01] MEDS: VYVANSE 60 MG PO SCH (13:37)
[2024-06-02] MEDS: busPIRone HCl 5 MG TAB PO STA (09:49)
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
[2024-06-02] MEDS: busPIRone HCl 10 MG TAB PO SCH (21:30)
--- NOTE | 2024-06-03 11:08 | P.PN ---
Progress Note - Text Progress Note Date: 06/03/24 Interval history: Patient was seen sitting in the lounge today and was directable and agreeable to speak with consumer loan underwriter. He states that he is doing better today, claims that the medications have been helping. States that his anxiety and depression have also been mildly improving since yesterday. He states that he did have some trouble with sleep last night, we spoke about increasing trazodone which she is okay with. States that he is try to go to groups interacting with others. Claims that his appetite is improving mildly. At this time patient denies any suicidal or homicidal ideations intent or plan. Denies any Auditory or visual hallucinations. Patient denies any side effects from the medications and has been compliant with meds. Mental status exam: General Appearance: Patient appears to be wearing glasses, unshaven, stated age is alert, directable, and cooperative. Behavior: No agitated behavior. Patient is calm and directable, cooperative Speech: Patient's speech is fluent and nonpressured. Mood/Affect: Mood is improving mildly, affect is congruent and constricted. Suicidality/Homicidality: Patient denies having any suicidal or homicidal ideation intent or plan. Perceptions: Patient denies any auditory or visual hallucinations. Though content/process: There is no evidence of any delusional thought content and thought process is linear and goal-directed. Memory and concentration: AOX3, grossly intact for the purposes of this session Judgment and insight: improving mildly Assessment/Plan: Continue with current diagnosis. Patient continues to meet criteria for inpatient psychiatric admission for symptom stabilization and safety. Patient will be maintained on current psychotropic medication regimen, with the exception of increasing trazodone to 100 mg nightly. Monitor for medication compliance and for any psychotropic medication side effects. Will continue to monitor ongoing response to treatment. Encouraged participation in milieu.
[2024-06-03] MEDS: traZODone HCL 100 MG TAB PO SCH (22:20)
[2024-06-04 06:39] VITALS: RESP 16
--- NOTE | 2024-06-04 09:57 | P.PN ---
Progress Note - Text Progress Note Date: 06/04/24 Interval history: Patient was seen today in his room agreeable to speak to commercial underwriter. He states that he is doing better today. Claims that the BuSpar has been helping quite a bit with his anxiety. He is thankful for coming into the hospital. He was fairly pleasant today directable during conversation. He appears to be more goal oriented today. Claims that he slept really well last night however remains groggy this morning. He asked to have his trazodone reduced to 75 mg. States that he is try to go to groups interacting with others. Claims that his appetite is improving mildly. At this time patient denies any suicidal or homicidal ideations intent or plan. Denies any Auditory or visual hallucinations. Patient denies any side effects from the medications and has been compliant with meds. Mental status exam: General Appearance: Patient appears to be wearing glasses, unshaven, stated age is alert, directable, and cooperative. Behavior: No agitated behavior. Patient is calm and directable, cooperative improving Speech: Patient's speech is fluent and nonpressured. Mood/Affect: Mood is improving mildly, affect is congruent and constricted. Improving mildly Suicidality/Homicidality: Patient denies having any suicidal or homicidal ideation intent or plan. Perceptions: Patient denies any auditory or visual hallucinations. Though content/process: There is no evidence of any delusional thought content and thought process is linear and goal-directed. Memory and concentration: AOX3, grossly intact for the purposes of this session Judgment and insight: improving mildly Assessment/Plan: Continue with current diagnosis. Patient continues to meet criteria for inpatient psychiatric admission for symptom stabilization and safety. Patient will be maintained on current psychotropic medication regimen, with the exception of decreasing trazodone to 75 mg nightly. Monitor for medication compliance and for any psychotropic medication side effects. Will continue to monitor ongoing response to treatment. Encouraged participation in milieu.
[2024-06-04] MEDS: traZODone HCL 50 MG TAB PO SCH (22:12)
[2024-06-05 07:04] VITALS: TEMP 97.5
--- NOTE | 2024-06-05 12:20 | P.PN ---
Progress Note - Text Progress Note Date: 06/05/24 Interval History: Patient was seen doing a puzzle and was directable and agreeable to speak with poem writer in the office. He reports feeling well today. He reports no anxiety and states he has been journaling which has been effective. He states he has been speaking with his partner and he has been noticing he is more bright, making friends on the unit. He reports good sleep stating he has been dreaming more. At this time patient denies any suicidal or homicidal ideations, intent or plan. Patient denies any auditory, visual hallucinations and denies any paranoia or delusions. Patient denies any side effects from the medications and has been compliant with meds. Mental Status Exam: General Appearance: Patient appears to be stated age is alert, directable, and cooperative. Patient wears glasses has short dark hair Behavior: Patient is calmly seated without any agitated behavior. Speech: Patient's speech is fluent and nonpressured. Mood/Affect: Mood is "better" affect is congruent and reactive. Suicidality/Homicidality: Patient denies having any suicidal or homicidal ideation intent or plan. Perceptions: Patient denies any visual hallucinations and denies any auditory hallucinations Though content/process: There is no evidence of any delusional thought content and thought process is linear and goal-directed. Memory and concentration: AOX3, grossly intact for the purposes of this session Judgment and insight: Improving mildly Assessment Major depressive disorder, recurrent, moderate Panic disorder History of ADHD Cannabis use disorder Plan: -Patient continues to meet criteria for inpatient psychiatric admission for symptom stabilization and safety. Patient has signed adult voluntary form and medication consent and was placed in patient's chart. -Medications: Continue Zoloft 200 mg daily for depression/anxiety, BuSpar 10 mg twice daily for anxiety, trazodone 75 mg at bedtime for insomnia -When necessary Ativan and Haldol for agitation/aggression. -Labs: Reviewed -SW on board for discharge planning. Encouraged the patient to participate in milieu. Anticipate discharge home with girlfriend tomorrow, will confirm with girlfriend no firearms in the home. Will work on setting up his outpatient appointments as patient has no outpatient psychiatrist
[2024-06-06 06:58] VITALS: BP 110/64; PULSE 75
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
== END 2024-06-06 11:14 | disposition home or self-care (01) | DRG 885 ==
LOC: EC 11:40 → 3MHU 15:58
PROVIDERS: ADMIT Psychiatry & Neurology Psychiatry; ATTEND Psychiatry & Neurology Psychiatry
DX: F33.1 Major depressive disorder, recurrent, moderate (principal); E66.9 Obesity, unspecified; F12.10 Cannabis abuse, uncomplicated; F41.0 Panic disorder [episodic paroxysmal anxiety]; F43.10 Post-traumatic stress disorder, unspecified; I10 Essential (primary) hypertension; J45.909 Unspecified asthma, uncomplicated; G47.00 Insomnia, unspecified; F90.9 Attention-deficit hyperactivity disorder, unspecified type; Z91.51 Personal history of suicidal behavior; Z68.37 Body mass index [BMI] 37.0-37.9, adult; Z79.899 Other long term (current) drug therapy
CPT/HCPCS: 80053; 80306; 81003; 82075; 83036; 84443; 85025; 87635; 99284